=== PATIENT | female | born 1940 ===

== ENCOUNTER 2017-04-15 15:07 | Emergency (ER) | payer OTHER ==
[2017-04-15 15:07] VITALS: BMI 25.9
[2017-04-15 15:13] VITALS: TEMP 98
--- NOTE | 2017-04-15 15:44 | ED PDOC ---
Arrival/HPI - General Chief Complaint: High Blood Pressure Time Seen by Provider: 04/15/17 15:08 Historian: Patient - History of Present Illness Narrative History of Present Illness (Text): 04/15/17 15:31 Sondra Leiva is a 76 year old female, whose past medical history includes hypertension, arthritis, diverticulitis, cholecystectomy, and partial hysterectomy, presents to the Emergency department complaining of generalized weakness, lightheadedness, abdominal pain, right lower back pain and frontal and posterior headache since several days, worsening for past two days. Patient states she has been constipated for past week and informs taking prune juice for alleviation. Patient informs improvement of symptoms with her last bowel movement yesterday, consisting of "water" but no stool. Patient additionally complains of left intermittent chest pain described as "tightness" past felt yesterday but none today. Patient denies any fever, chills, cough, vomiting, shortness of breath or any other complaints. PCP: Dr. Eaton Time/Duration: < week Symptom Onset: Gradual Symptom Course: Worsening Quality: Aching Activities at Onset: Light Context: Home Past Medical History - Provider Review Nursing Documentation Reviewed: Yes - Infectious Disease Hx of Infectious Diseases: None - Tetanus Immunization Tetanus Immunization: Unknown - Cardiac Hx Cardiac Disorders: Yes Hx Hypertension: Yes Hx Pacemaker: No - Pulmonary Hx Respiratory Disorders: No - Neurological Hx Neurological Disorder: No - HEENT Hx HEENT Disorder: No - Renal Hx Renal Disorder: No - Endocrine/Metabolic Hx Endocrine Disorders: No - Hematological/Oncological Hx Blood Disorders: No Hx Blood Transfusions: No Hx Blood Transfusion Reaction: No - Integumentary Hx Dermatological Disorder: No - Musculoskeletal/Rheumatological Hx Musculoskeletal Disorders: Yes Hx Arthritis: Yes Hx Falls: Yes (FELL 2 TIMES BROKE ANKLE FIRST TIME SECOND TIME INJURED ARM) Hx Fractures: Yes (ANKLE/FALL) Hx Osteoporosis: Yes - Gastrointestinal Hx Gastrointestinal Disorders: Yes Hx Diverticulitis: Yes Hx Gall Bladder Disease: Yes Hx Nausea: Yes (03-06-12) - Psychiatric Hx Emotional Abuse: No Hx Physical Abuse: No Hx Substance Use: No - Surgical History Hx Cholecystectomy: Yes (ABDOMINAL-WITH LYSIS OF ADHESIONS,SIGMOID COLECTOMY WTIH ANATOMOSIS,) Hx Hysterectomy: Yes (PARTIAL) - Anesthesia Hx Anesthesia: Yes Hx Anesthesia Reactions: No Hx Malignant Hyperthermia: No - Suicidal Assessment Feels Threatened In Home Enviroment: No Family/Social History - Physician Review Nursing Documentation Reviewed: Yes Family/Social History: Unknown Family HX Smoking Status: Never Smoked Hx Alcohol Use: No Hx Substance Use: No Hx Substance Use Treatment: No Allergies/Home Meds Allergies/Adverse Reactions: Allergies No Known Allergies Allergy (Verified 04/15/17 15:08) Home Medications: Home Meds Medication Instructions Recorded Confirmed Ergocalciferol (Vitamin D2) 1 tab PO QWK 04/15/17 04/15/17 [Vitamin D2] Oxybutynin [Ditropan Tab] 5 mg PO DAILY 04/15/17 04/15/17 Valsartan [Diovan] 160 mg PO DAILY 04/15/17 04/15/17 hydroCHLOROthiazide [Microzide] 12.5 mg PO DAILY 04/15/17 04/15/17 Review of Systems - Physician Review All systems were reviewed & negative as marked: Yes - Review of Systems Constitutional: Normal. absent: Fevers Eyes: Normal ENT: Normal Respiratory: Normal. absent: SOB Cardiovascular: Chest Pain (intermittent chest tightness past felt yesterday. None today. ) Gastrointestinal: Abdominal Pain, Constipation (several days. Improvement after prune juice. ). absent: Vomiting Genitourinary Female: Normal Musculoskeletal: Back Pain (right lower lumbar pain ), Neck Pain Skin: Normal Neurological: Headache, Other (Lightheadedness ) Endocrine: Normal Hemo/Lymphatic: Normal Psychiatric: Normal Physical Exam Vital Signs Reviewed: Yes Vital Signs Temp Pulse Resp BP Pulse Ox 04/15/17 19:33 65 21 147/65 97 04/15/17 18:31 76 17 158/65 H 97 04/15/17 16:54 158/64 H 04/15/17 16:32 66 18 157/104 H 96 04/15/17 15:07 98.0 F 74 18 186/66 H 96 Temperature: Afebrile Blood Pressure: Hypertensive Pulse: Regular Respiratory Rate: Normal Appearance: Positive for: Well-Appearing, Non-Toxic, Comfortable Pain Distress: None Mental Status: Positive for: Alert and Oriented X 3 - Systems Exam Head: Present: Atraumatic, Normocephalic Pupils: Present: PERRL Extroacular Muscles: Present: EOMI Conjunctiva: Present: Normal Mouth: Present: Moist Mucous Membranes Neck: Present: Normal Range of Motion Respiratory/Chest: Present: Clear to Auscultation, Good Air Exchange. No: Respiratory Distress, Accessory Muscle Use Cardiovascular: Present: Regular Rate and Rhythm, Normal S1, S2. No: Murmurs Abdomen: Present: Tenderness (mid right lower quadrant tenderness with guarding ), Normal Bowel Sounds, Guarding. No: Distention, Peritoneal Signs Back: Present: Paraspinal Tenderness (Right lower lumbar ) Upper Extremity: Present: Normal Inspection. No: Cyanosis, Edema Lower Extremity: Present: Normal Inspection. No: Edema Neurological: Present: GCS=15, CN II-XII Intact, Speech Normal Skin: Present: Warm, Dry, Normal Color. No: Rashes Psychiatric: Present: Alert, Oriented x 3, Normal Insight, Normal Concentration Medical Decision Making ED Course and Treatment: 04/15/17 15:35 Impression: 76 year old female presents to the Emergency department for generalized weakness, lightheadedness, abdominal pain and back pain. Differential Diagnosis included but are not limited to: constipation abdominal pain rule out diverticulitis vs. dehydration vs. bowel obstruction. chest pain and Lightheadedness rule out cardiac vs. dehydration. Plan: -- VBG -- CT Abdomen/Pelvis -- EKG -- Labs -- Chest X-ray -- Blood cuture -- Urine culture -- Urinalysis -- Reassess and disposition Prior Visits: Notes and results from previous visits were reviewed. On 01/26/14 patient presented to the Emergency department for left leg pain s/p trauma. Patient was discharged home after treatment. Progress Notes: 04/15/17 15:50 EKG: Ordered, reviewed, and independently interpreted the EKG. Rate : 75 BPM Rhythm : NSR Interpretation : Some motion artifact. No ST-segment elevations or depressions, no T-wave inversions, normal intervals. 04/15/17 19:00 Chest X-ray reviewed by radiologist, shows no active disease. CT of Abdomen/ Pelvis reviewed by radiologist, shows: IMPRESSION: No CT evidence of acute pathology in the abdomen and pelvis. No evidence of bowel obstruction. The sigmoid and rectum are not opacified with oral contrast therefore cannot be fully evaluated. Scattered colonic diverticulosis noted without evidence of diverticulitis. 04/15/17 19:26 Leaving Against Medical Advice (AMA): The patient is choosing to leave against medical advice. I have personally explained to the patient that choosing to do so may result in permanent bodily harm or . I have discussed at great length that without further evaluation and monitoring there may be unforeseen circumstances and/or deterioration causing permanent bodily harm or as a result of their choice. The patient is alert, oriented, and shows the mental capacity to make clear decisions regarding the patients health care at this time. The patient continues to wish to leave against medical advice. In light of the patients decision to leave against medical advice, follow-up has been arranged and the patient is aware of the importance to following up as instructed. The patient has been advised that they should return to the emergency room immediately if they change their mind at any time, or if their condition begins to change or worsen in any way. 04/15/17 19:[address] Eaton who is requesting Rx prescription of high dose lactulose BID. All discussions with patient were in Nepalese by me. I am fluent in Nepalese. - Lab Interpretations Lab Results: 04/15/17 15:40 04/15/17 15:40 Lab Results 04/15/17 17:00: Urine Color Yellow, Urine Appearance Clear, Urine pH 6.0, Ur Specific Langdon 1.010, Urine Protein Negative, Urine Glucose (UA) Negative, Urine Ketones Negative, Urine Blood Small H, Urine Nitrate Negative, Urine Bilirubin Negative, Urine Urobilinogen 0.2, Ur Leukocyte Esterase Negative, Urine RBC 1 - 3, Urine WBC Negative, Ur Epithelial Cells 0 - 2 04/15/17 15:40: pO2 38, VBG pH 7.32, VBG pCO2 55.0, VBG HCO3 28.3 H, VBG Total CO2 30.0 H, VBG O2 Sat (Calc) 76.5 H, VBG Base Excess 1.1, VBG Potassium 4.3, Sodium 130.0 L, Chloride 94.0 L, Glucose 90, Lactate 1.9, FiO2 21.0, Venous Blood Potassium 4.3 04/15/17 15:40: Sodium 130 L, Chloride 94 L, Potassium 4.0, Carbon Dioxide 27, Anion Gap 13, BUN 8, Creatinine 0.7, Est GFR ( Amer) > 60, Est GFR (Non- Af Amer) > 60, Random Glucose 92, Calcium 9.8, Magnesium 1.7, Total Bilirubin 0.6, AST 37 H, ALT 44, Alkaline Phosphatase 87, Lactate Dehydrogenase 386, Total Creatine Kinase 161, Troponin I < 0.01, Total Protein 8.7 H, Albumin 4.6, Globulin 4.1, Albumin/Globulin Ratio 1.1 04/15/17 15:40: PT 11.7, INR 1.07, APTT 26.7 04/15/17 15:40: WBC 8.6, RBC 4.60, Hgb 13.5, Hct 38.8, MCV 84.3, MCH 29.3, MCHC 34.8, RDW 13.4, Plt Count 248, MPV 9.3, Gran % 64.1, Lymph % (Auto) 28.9, Lea % (Auto) 5.8, Eos % (Auto) 1.0 L, Baso % (Auto) 0.2, Gran # 5.49, Lymph # 2.5, Lea # 0.5, Eos # 0.1, Baso # 0.02 - RAD Interpretation Radiology Orders: 04/15/17 15:33 CHEST PORTABLE [RAD] Stat 04/15/17 15:34 ABD PELVIS PO & IV CONTRAST [CT] Stat - EKG Interpretation Interpreted by ED Physician: Yes Type: 12 lead EKG - Medication Orders Current Medication Orders: Discontinued Medications Acetaminophen (Tylenol 325mg Tab) 650 mg PO STAT STA Stop: 04/15/17 15:34 Last Admin: 04/15/17 15:49 Dose: 650 mg Aspirin (Aspirin) 325 mg PO STAT STA Stop: 04/15/17 18:33 Last Admin: 04/15/17 18:42 Dose: 325 mg - Scribe Statement The provider has reviewed the documentation as recorded by the Stephan Oropeza. All medical record entries made by the Stephan were at my direction and personally dictated by me. I have reviewed the chart and agree that the record accurately reflects my personal performance of the history, physical exam, medical decision making, and the department course for this patient. I have also personally directed, reviewed, and agree with the discharge instructions and disposition. Disposition/Present on Arrival - Present on Arrival Any Indicators Present on Arrival: No History of DVT/PE: No History of Uncontrolled Diabetes: No Urinary Catheter: No History of Decub. Ulcer: No History Surgical Site Infection Following: None - Disposition Have Diagnosis and Disposition been Completed?: Yes Diagnosis: Abdominal pain, Constipation, Chest pain, Lightheadedness Disposition: AGAINST MEDICAL ADVICE Disposition Time: 19:45 Patient Plan: Discharge Patient Problems: Current Active Problems Problem Status Onset Abdominal pain Acute Chest pain Acute Constipation Acute Lightheadedness Acute Condition: IMPROVED Discharge Instructions (ExitCare): Chest Pain (ED) Additional Instructions: Ms Leiva, thank you for letting us take care of you today. Your provider was Dr. Waggoner. You were treated for Abdominal Pain, Constipation, Chest Pain, Lightheadedness. The emergency medical care you received today was directed at your acute symptoms. If you were prescribed any medication, please fill it and take as directed. It may take several days for your symptoms to resolve. Return to the Emergency Department if your symptoms worsen, do not improve, or if you have any other problems. Please contact your doctor or call one of the physicians/clinics you have been referred to that are listed on the Patient Visit Information form that is included in your discharge packet. Bring any paperwork you were given at discharge with you along with any medications you are taking to your follow up visit. Our treatment cannot replace ongoing medical care by a primary care provider (PCP) outside of the emergency department. Thank you for allowing the [facility] team to be part of your care today. If you had an X-Ray or CT scan: A Radiologist will review the ED reading if any change in treatment is needed we will contact you. If you had a blood, urine, or wound culture: It will take several days for the results, if any change in treatment is needed we will contact you. If you had an STI test: It will take 48 hours for the results. Please call after 1 week if you have not heard back. Prescriptions: Lactulose 20 gm PO BID PRN #1 solution PRN Reason: Constipation Referrals: Estefania Eaton MD [Primary Care Provider] - Follow up with primary Forms: [employer] ([employer])
[2017-04-15] MEDS ORDERED: Sodium Chloride 0.9% 1,000 ML IV SCH (15:45)
[2017-04-15] MEDS ORDERED: Iohexol 350 MG/100 ML VIAL ONE (15:52)
[2017-04-15] MEDS ORDERED: Iohexol 240 (50 ml) ONE (15:52)
[2017-04-15 15:57] LABS: BASO # 0.02 K/mm3 (0.0-2.0); BASO % 0.2 % (0.0-3.0); EOS # 0.1 (0.0-0.7); GRAN # 5.49 (1.4-6.5); GRAN % 64.1 % (50.0-68.0); HEMOGLOBIN 13.5 g/dL (12.0-16.0); LYMPH # 2.5 (1.2-3.4); LYMPH % 28.9 % (22.0-35.0); MEAN CELL VOLUME 84.3 fl (80.0-105.0); MEAN CORPUSCULAR HEMOGLOBIN 29.3 pg (25.0-35.0); MEAN CORPUSCULAR HGB CONC 34.8 g/dl (31.0-37.0); MEAN PLATELET VOLUME 9.3 fl (7.0-11.0); MONO # 0.5 (0.1-0.6); MONO % 5.8 % (1.0-6.0); RBC 4.6 10^6/uL (3.5-6.1); RED CELL DISTRIBUTION WIDTH 13.4 % (11.5-14.5); WHITE BLOOD COUNT 8.6 10^3/ul (4.5-11.0)
[2017-04-15 16:07] LABS: ALBUMIN 4.6 g/dL (3.0-4.8); ALT/SGPT 44 U/L (7-56); AST/SGOT 37 U/L (14-36); BLOOD UREA NITROGEN 8 mg/dL (7-21); CALCIUM 9.8 mg/dL (8.4-10.5); GFR AFRICAN-AMERICAN > 60; GFR NON-AFRICAN AMERICAN > 60; MAGNESIUM 1.7 mg/dL (1.7-2.2)
[2017-04-15 16:08] LABS: INR 1.07 (0.93-1.08); PARTIAL THROMBOPLASTIN TIME 26.7 Seconds (25.1-36.5); PROTHROMBIN TIME 11.7 SECONDS (9.4-12.5)
[2017-04-15 16:17] LABS: TROPONIN I < 0.01 ng/mL
[2017-04-15 16:19] LABS: ALB/GLOB RATIO 1.1 (1.1-1.8)
[2017-04-15 16:38] LABS: VENOUS BLOOD GAS BASE EXCESS 1.1 mmol/L (0.0-2.0); VENOUS BLOOD GAS PO2 38 mm/Hg (30-55); VENOUS BLOOD PH 7.32 (7.32-7.43)
[2017-04-15 17:09] LABS: URINE BILIRUBIN NEGATIVE (NEGATIVE); URINE BLOOD SMALL (NEGATIVE); URINE GLUCOSE (UA) NEGATIVE (NEGATIVE); URINE LEUKOCYTE ESTERASE NEGATIVE Leu/uL (NEGATIVE); URINE NITRATE NEGATIVE (NEGATIVE); URINE PROTEIN NEGATIVE mg/dL (<30 mg/dL); URINE UROBILINOGEN 0.2 E.U./dL (<1 E.U./dL)
[2017-04-15 17:12] LABS: URINE APPEARANCE CLEAR (CLEAR); URINE COLOR YELLOW (YELLOW)
[2017-04-15 17:24] LABS: URINE EPITHELIAL CELLS 0 - 2 /hpf (0-5); URINE WBC NEGATIVE /hpf (0-6)
--- NOTE | 2017-04-15 18:32 | RAD ---
HISTORY: chest pain COMPARISON: Comparison is made with 02/07/2012 FINDINGS: LUNGS: No active pulmonary disease. PLEURA: No significant pleural effusion identified, no pneumothorax apparent. CARDIOVASCULAR: Normal. OSSEOUS STRUCTURES: No significant abnormalities. VISUALIZED UPPER ABDOMEN: Normal. OTHER FINDINGS: None. IMPRESSION: No active disease.
--- NOTE | 2017-04-15 18:43 | CT ---
PROCEDURE: CT Abdomen and Pelvis with contrast HISTORY: abd pain r/o obstruction COMPARISON: Comparison is made with the previous study dated 11/30/2016 TECHNIQUE: Contrast dose: 100 mL Omnipaque 350. Axial and reformatted coronal and sagittal CT images of the abdomen and pelvis were obtained after IV and oral contrast administration. Radiation dose: Total exam DLP = 479.97 mGy-cm. This CT exam was performed using one or more of the following dose reduction techniques: Automated exposure control, adjustment of the mA and/or kV according to patient size, and/or use of iterative reconstruction technique. FINDINGS: LOWER THORAX: No evidence of acute pathology or suspicious mass at the lung bases. Mild cardiomegaly is noted. No evidence of pleural effusion LIVER: Mild hepatomegaly is noted. GALLBLADDER AND BILE DUCTS: Status post cholecystectomy. Mildly dilated CBD is again noted likely due to prior cholecystectomy. PANCREAS: Unremarkable. No gross lesion or ductal dilatation. SPLEEN: Unremarkable. ADRENALS: Unremarkable. No mass. KIDNEYS AND URETERS: Mild fullness noted in both kidneys collecting system likely due to distended bladder. . No hydronephrosis. No solid mass. VASCULATURE: Unremarkable. No aortic aneurysm. BOWEL: The distal large bowel occluding the sigmoid and rectum are not opacified with oral contrast therefore cannot be fully evaluated. There is a large bowel anastomosis seen at the pelvis at the region of proximal rectum or sigmoid rectal junction. . No obstruction. No gross mural thickening. Scattered colonic diverticulosis are seen without evidence of diverticulitis. APPENDIX: No evidence of appendicitis. PERITONEUM: Unremarkable. No free fluid. No free air. LYMPH NODES: Unremarkable. No enlarged lymph nodes. BLADDER: The urinary bladder is mildly distended. REPRODUCTIVE: The uterus is not visualized. BONES: No acute fracture. OTHER FINDINGS: None. IMPRESSION: No CT evidence of acute pathology in the abdomen and pelvis. No evidence of bowel obstruction. The sigmoid and rectum are not opacified with oral contrast therefore cannot be fully evaluated. Scattered colonic diverticulosis noted without evidence of diverticulitis.
[2017-04-15 19:33] VITALS: BP 147/65; PULSE 65
[2017-04-15 20:03] VITALS: RESP 18; O2SAT 99
--- NOTE | 2017-04-16 14:55 | CARD ---
APPROVED REPORT EKG Measurement Heart [id number] <Conclusion> Normal sinus rhythm Nonspecific ST abnormality Abnormal ECG
== END 2017-04-15 20:03 | disposition left against medical advice (07) ==
LOC: ED 15:07
DX: R07.9 Chest pain, unspecified (principal); R42 Dizziness and giddiness; K59.00 Constipation, unspecified; R10.9 Unspecified abdominal pain; I10 Essential (primary) hypertension; Z90.49 Acquired absence of other specified parts of digestive tract
CPT/HCPCS: 71010; 74177; 80053; 81001; 82550; 82803; 83615; 83735; 84484; 85025; 85610; 85730; 87040; 87086; 87181; 93005; 99285; Q9966; Q9967